=== PATIENT | female | born 1960 | race Caucasian/White ===

== ENCOUNTER 2017-08-14 16:21 | Emergency (ER) | payer MEDICARE, MEDICAID ==
--- NOTE | 2017-08-14 16:54 | Emergency Department Record ---
History of Present Illness - General Chief Complaint: Cough Stated Complaint: COUGH Time Seen by Provider: 08/14/17 16:52 Source: Patient, Family Mode of Arrival: Ambulatory Limitations: No limitations - History of Present Illness Initial Comments: The patient is here due to a dry cough and low grade fever for one day. She also has a mild runny nose. The patient lives in a foster shelter and 2 other residents were just diagnosed with Influenza in the last 2 days. There is no reported vomiting, CP or SOB. MD Complaint: Cough, Fever Onset/Timin -: Days(s) - Related Data Previous Rx's Medication Instructions Recorded Oseltamivir Phosphate [Tamiflu] 75 mg PO BID #10 capsule 08/14/17 Allergies Allergy/AdvReac Type Severity Reaction Status Date / Time No Known Drug Allergies Allergy Verified 01/12/15 19:23 Travel Screening - Travel/Exposure Within Last 30 Days Have you traveled within the last 30 days?: No - Travel/Exposure Within Last Year Have you traveled outside the [place] in the last year?: No - Travel Symptoms Symptom Screening: None Review of Systems Constitutional: Reports: Fever. Denies: Chills, Malaise Eyes: Denies: Eye discharge ENT: Reports: Congestion Respiratory: Reports: Cough. Denies: Dyspnea Past Medical History - SOCIAL HISTORY Smoking Status: Never smoker Alcohol Use: None Drug Use: None - RESPIRATORY Hx Respiratory Disorders: No - CARDIOVASCULAR Hx Cardio Disorders: Yes Hx Hypertension: Yes (controlled) - NEURO Hx Neuro Disorders: Yes Hx Seizures: Yes (none in past 2 yrs) Comment:: encephalopathy, mental retardation - GI Hx GI Disorders: Yes Hx Reflux: Yes - Hx Genitourinary Disorders: No - ENDOCRINE Hx Endocrine Disorders: No - MUSCULOSKELETAL Hx Musculoskeletal Disorders: No - PSYCH Hx Psych Problems: Yes Comment:: needs occ redirecting - HEMATOLOGY/ONCOLOGY Hx Hematology/Oncology Disorders: No Family Medical History Any Significant Family History?: No Family Hx Comment (NOT TO BE USED IN PLACE OF ITEMS BELOW): unsure Physical Exam - General General Appearance: Alert, Cooperative, No acute distress - Head Head exam: Atraumatic, Normocephalic, Normal inspection - Eye Eye exam: Normal appearance, PERRL - ENT Throat exam: Normal inspection. negative: Tonsillar erythema, Tonsillar exudate - Neck Neck exam: Normal inspection, Full ROM. negative: Tenderness - Respiratory Respiratory exam: Normal lung sounds bilaterally. negative: Respiratory distress - Cardiovascular Cardiovascular Exam: Regular rate, Normal rhythm, Normal heart sounds - GI/Abdominal GI/Abdominal exam: Soft, Normal bowel sounds. negative: Tenderness Course Vital Signs 08/14/17 16:29 Temperature 99.8 F H Pulse Rate [ 87 Pulse Ox Probe] Respiratory 22 Rate Blood Pressure 128/81 [Left Arm] Pulse Ox 98 - Reevaluation(s) Reevaluation #1: I did discuss the neg xray with the home caregiver and the need to tx for Influenza due to the patient having classic symptoms and a clear cut exposure. 08/14/17 17:56 Medical Decision Making - Data Complexity MDM Data: X-Ray Ordered and/or Reviewed - Radiology Data Radiology results: Report reviewed (CXR: Neg) Disposition Disposition: Discharge Clinical Impression: Influenza Disposition: Home, Self-Care Condition: (2) Stable Instructions: Influenza (ED) Additional Instructions: Please use Motrin or Tylenol for body aches and fevers. Please give the Tamiflu as directed. Please see your PCP in 3-4 days if not better and return to the ER for any worsening symptoms. Prescriptions: Oseltamivir Phosphate [Tamiflu] 75 mg PO BID #10 capsule Forms: Patient Portal Access Time of Disposition: 16:59 Quality - Quality Measures Quality Measures: N/A - Blood Pressure Screening View Details: Yes Does Patient Have Any of the Following: No Blood Pressure Classification: Pre-Hypertensive BP Reading Systolic Measurement: 120 Diastolic Measurement: 78 Screening for High Blood Pressure: < Pre-Hypertensive BP, F/U Documented > [ G8950] Pre-Hypertensive Follow-up Interventions: Referral to alternative/primary care provider.
--- NOTE | 2017-08-15 23:01 | RADIOLOGY REPORT ---
EXAM: CHEST 2 VIEWS HISTORY: FEVER AND COUGH. TESTED POSITIVE FOR INFLUENZA A. TECHNIQUE: Upright PA and lateral views of the chest. COMPARISON: None. FINDINGS: The cardiomediastinal silhouette is normal in size and configuration. The pulmonary vasculature is nondilated. The lungs and pleural spaces are clear. There are mild degenerative changes scattered throughout the visualized spine. IMPRESSION: NO RADIOGRAPHIC EVIDENCE OF ACUTE CARDIOPULMONARY DISEASE. JOB NUMBER: [id number] MTDD
== END 2017-08-14 17:49 | disposition home or self-care (01) ==
LOC: ER 16:21
DX: J10.1 Influenza due to other identified influenza virus with other respiratory manifestations (principal); R05 Cough; I10 Essential (primary) hypertension
CPT/HCPCS: 71046; 99283

== ENCOUNTER 2017-12-09 19:57 | Emergency (ER) | payer MEDICARE, MEDICAID ==
--- NOTE | 2017-12-09 20:48 | Emergency Department Record ---
History of Present Illness - General Chief Complaint: Ankle/Foot Injury Stated Complaint: FALL/RT FOOT SWELLING AND PAIN Time Seen by Provider: 12/09/17 20:27 Source: [employer] Mode of Arrival: Wheelchair Limitations: Altered mental status - History of Present Illness Initial Comments: pt comes from an [facility]. she was chasing a bee today and fell and injured both ankles and her l arm. no head injury. ot is a poor historian. info given by healthcare social worker Complaint: Ankle injury, Fall, Other Onset/Timin -: Hour(s) Injury: Ankle: Right, Left Place: Other Severity: Mild Worsens With: Weight bearing Context: Fall Associated Symptoms: Swelling, Unable to bear weight Treatments Prior to Arrival: Cold therapy - Related Data Home Medications Medication Instructions Recorded Confirmed Last Taken Benzonatate [Tessalon] 1 cap PO Q8H PRN 12/09/17 12/09/17 Unknown Lamotrigine [Lamictal] 200 mg PO DAILY 12/09/17 12/09/17 Unknown Allergies Allergy/AdvReac Type Severity Reaction Status Date / Time No Known Drug Allergies Allergy Verified 01/12/15 19:23 Travel Screening - Travel/Exposure Within Last 30 Days Have you traveled within the last 30 days?: No - Travel Symptoms Symptom Screening: None Review of Systems ROS unobtainable: Due to mental status Reviewed: No additional complaints except as noted below Constitutional: Reports: As per HPI. Denies: Chills, Fever, Malaise, Night sweats, Weakness, Weight change Eyes: Reports: As per HPI. Denies: Eye discharge, Eye pain, Photophobia, Vision change ENT: Reports: As per HPI. Denies: Congestion, Dental pain, Ear pain, Epistaxis , Hearing loss, Throat pain Respiratory: Reports: As per HPI. Denies: Cough, Dyspnea, Hemoptysis, Stridor, Wheezes Cardiovascular: Reports: As per HPI. Denies: Arrhythmia, Chest pain, Dyspnea on exertion, Edema, Murmurs, Orthopnea, Palpitations, Paroxysmal nocturnal dyspnea, Rheumatic Fever, Syncope Endocrine: Reports: As per HPI. Denies: Fatigue, Heat or cold intolerance, Polydipsia, Polyuria Gastrointestinal: Reports: As per HPI. Denies: Abdominal pain, Constipation, Diarrhea, Hematemesis, Hematochezia, Melena, Nausea, Vomiting Genitourinary: Reports: As per HPI. Denies: Abnormal menses, Discharge, Dyspareunia, Dysuria, Frequency, Hematuria, Incontinence, Retention, Urgency Musculoskeletal: Reports: As per HPI. Denies: Arthralgia, Back pain, Gout, Joint swelling, Myalgia, Neck pain Skin: Reports: As per HPI. Denies: Bruising, Change in color, Change in hair/ nails, Lesions, Pruritus, Rash Neurological: Reports: As per HPI. Denies: Abnormal gait, Confusion, Headache, Numbness, Paresthesias, Seizure, Tingling, Tremors, Vertigo, Weakness Psychiatric: Reports: As per HPI. Denies: Anxiety, Auditory hallucinations, Depression, Homicidal thoughts, Suicidal thoughts, Visual hallucinations Hematological/Lymphatic: Reports: As per HPI. Denies: Anemia, Blood Clots, Easy bleeding, Easy bruising, Swollen glands Past Medical History - SOCIAL HISTORY Smoking Status: Never smoker - RESPIRATORY Hx Respiratory Disorders: No Comment:: seasonal allergies - CARDIOVASCULAR Hx Cardio Disorders: Yes Hx Hypertension: Yes (controlled) Comment:: high cholesterol - NEURO Hx Neuro Disorders: Yes Hx Seizures: Yes (none in past 2 yrs) Comment:: encephalopathy, mental retardation - GI Hx GI Disorders: Yes Hx Reflux: Yes - Hx Genitourinary Disorders: No - ENDOCRINE Hx Endocrine Disorders: No - MUSCULOSKELETAL Hx Musculoskeletal Disorders: No - PSYCH Hx Psych Problems: Yes Comment:: needs occ redirecting - HEMATOLOGY/ONCOLOGY Hx Hematology/Oncology Disorders: No Family Medical History Any Significant Family History?: No Family Hx Comment (NOT TO BE USED IN PLACE OF ITEMS BELOW): unsure Physical Exam - General General Appearance: Alert, Cooperative, No acute distress - Head Head exam: Normal inspection - Eye Eye exam: Normal appearance, PERRL, EOMI Pupils: Normal accommodation - ENT ENT exam: Normal exam, Mucous membranes moist, Normal external ear exam, Normal orophraynx Ear exam: Normal external inspection. negative: External canal tenderness Nasal Exam: Normal inspection. negative: Discharge, Sinus tenderness Mouth exam: Normal external inspection, Tongue normal Teeth exam: Normal inspection. negative: Dental caries Throat exam: Normal inspection. negative: Tonsillar erythema, Tonsillar exudate - Neck Neck exam: Normal inspection, Full ROM. negative: Tenderness - Respiratory Respiratory exam: Normal lung sounds bilaterally. negative: Respiratory distress - Cardiovascular Cardiovascular Exam: Regular rate, Normal rhythm, Normal heart sounds - GI/Abdominal GI/Abdominal exam: Soft, Normal bowel sounds. negative: Tenderness - Rectal Rectal exam: Deferred - exam: Deferred - Extremities Extremities exam: Full ROM, Normal capillary refill, Tenderness Image of Full Body: 1 - tenderness and bruising 2 - tenderness and ecchymosis 3 - ecchymosis - Back Back exam: Reports: Normal inspection, Full ROM. Denies: Muscle spasm, Rash noted, Tenderness - Neurological Neurological exam: Alert, Normal gait, Oriented X3, Reflexes normal - Psychiatric Psychiatric exam: Normal affect, Normal mood - Skin Skin exam: Dry, Intact, Normal color, Warm Course Vital Signs 12/09/17 20:04 Temperature 97.5 F L Pulse Rate [ 87 Pulse Ox Probe] Respiratory 16 Rate Blood Pressure 121/80 [Left Arm] Pulse Ox 97 Disposition Disposition: Discharge Clinical Impression: Ankle sprain Qualifiers: Encounter type: initial encounter Involved ligament of ankle: unspecified ligament Laterality: right Qualified Code(s): S93.401A - Sprain of unspecified ligament of right ankle, initial encounter Disposition: Home, Self-Care Condition: (1) Good Instructions: Ankle Sprain (ED) Additional Instructions: follow up with family doctor. return sooner if worse. ice and elevation Forms: Patient Portal Access Quality - Quality Measures Quality Measures: N/A - Blood Pressure Screening Does Patient Have Any of the Following: No Blood Pressure Classification: Pre-Hypertensive BP Reading Systolic Measurement: 121 Diastolic Measurement: 80 Screening for High Blood Pressure: < Pre-Hypertensive BP, F/U Documented > [ G8950] Pre-Hypertensive Follow-up Interventions: Follow-up with rescreen every year.
[2017-12-09] MEDS ORDERED: IBUPROFEN 600 MG TABLET PO ONE (21:18)
--- NOTE | 2017-12-11 10:21 | RADIOLOGY REPORT ---
EXAM: LEFT ANKLE HISTORY: PAIN. TECHNIQUE: Three views of the left ankle were obtained. Comparison: None. FINDINGS: Osteopenia. Post surgical changes of the medial malleolus. Negative for acute fracture or dislocation. Chronic changes to the ankle mortise. Small calcaneal spurs. IMPRESSION: NO ACUTE OSSEOUS ABNORMALITY. POST SURGICAL CHANGES AND DEGENERATIVE CHANGES. SMALL CALCANEAL SPURS. JOB NUMBER: [id number] MTDD
--- NOTE | 2017-12-11 10:32 | RADIOLOGY REPORT ---
EXAM: RIGHT ANKLE HISTORY: PAIN. TECHNIQUE: Three views of the right ankle were obtained. Comparison: None. Encounter: Initial. FINDINGS: Osteopenia. Post surgical change of the medial malleolus. Negative for acute fracture or dislocation. Small plantar heel spur. Mild lateral soft tissue swelling. IMPRESSION: OSTEOPENIA. MILD LATERAL SOFT TISSUE SWELLING. POST SURGICAL CHANGES. TINY CALCANEAL SPUR. JOB NUMBER: [id number] MTDD
--- NOTE | 2017-12-11 10:34 | RADIOLOGY REPORT ---
EXAM: LEFT HUMERUS HISTORY: PAIN. TECHNIQUE: Two views of the left humerus were obtained. Comparison: None. Encounter: Initial. FINDINGS: Negative for fracture or dislocation. The soft tissues are unremarkable. The joint spaces are preserved. IMPRESSION: NEGATIVE LEFT HUMERUS EXAMINATION. JOB NUMBER: [id number] MTDD
== END 2017-12-09 21:41 | disposition home or self-care (01) ==
LOC: ER 19:57
DX: S93.401A Sprain of unspecified ligament of right ankle, initial encounter (principal); M25.572 Pain in left ankle and joints of left foot; M79.622 Pain in left upper arm; I10 Essential (primary) hypertension; W19.XXXA Unspecified fall, initial encounter
CPT/HCPCS: 99283; 99284

== ENCOUNTER 2019-09-27 09:09 | Emergency (ER) | payer MEDICARE, MEDICAID ==
--- NOTE | 2019-09-27 09:47 | Emergency Department Record ---
History of Present Illness - General Chief Complaint: Ankle/Foot Injury Stated Complaint: ANKLE INJURY Time Seen by Provider: 09/27/19 09:29 Source: Patient Mode of Arrival: Ambulatory Limitations: No limitations - History of Present Illness Initial Comments: The patient is here due to L ankle pain for a week. She initially injured it by falling a week ago and has been walking on it. She did go out yesterday with her mother and did injure it again. Now today she woke up and has been unable to walk on the leg and the ankle and foot are very swollen. MD Complaint: Ankle injury Onset/Timin -: Days(s) Place: Home Severity: Moderate Severity scale (1-10): 4 Improves With: Rest Worsens With: Weight bearing - Related Data Allergies Allergy/AdvReac Type Severity Reaction Status Date / Time No Known Drug Allergies Allergy Verified 09/27/19 09:34 Travel/Exposure Screening - Travel/Exposure Within Last 30 Days Have you traveled within the last 30 days?: No - Travel/Exposure Within Last Year Have you traveled outside the [place] in the last year?: No - Additonal Travel/Exposure Details Have you been exposed to anyone with a communicable illness?: No - Travel Symptoms Symptom Screening: None Review of Systems Constitutional: Denies: Chills, Fever Eyes: Denies: Eye discharge ENT: Denies: Congestion Respiratory: Denies: Cough Past Medical History - SOCIAL HISTORY Smoking Status: Never smoker Alcohol Use: None Drug Use: None - RESPIRATORY Hx Respiratory Disorders: Yes Comment:: seasonal allergies - CARDIOVASCULAR Hx Cardio Disorders: Yes Hx Hypertension: Yes (controlled) Comment:: high cholesterol - NEURO Hx Neuro Disorders: Yes Hx Seizures: Yes (none in past 6 yrs) Comment:: encephalopathy, mental retardation - GI Hx GI Disorders: Yes Hx Reflux: Yes - Hx Genitourinary Disorders: No - ENDOCRINE Hx Endocrine Disorders: No - MUSCULOSKELETAL Hx Musculoskeletal Disorders: No - PSYCH Hx Psych Problems: Yes Hx Anxiety: Yes Comment:: needs occ redirecting - HEMATOLOGY/ONCOLOGY Hx Hematology/Oncology Disorders: No Family Medical History Any Significant Family History?: Yes Family Hx Comment (NOT TO BE USED IN PLACE OF ITEMS BELOW): unsure Physical Exam - General General Appearance: Alert, Cooperative, No acute distress - Head Head exam: Atraumatic - Eye Eye exam: Normal appearance - Neck Neck exam: Normal inspection, Full ROM. negative: Tenderness - Respiratory Respiratory exam: Normal lung sounds bilaterally. negative: Respiratory distress - Cardiovascular Cardiovascular Exam: Regular rate, Normal rhythm, Normal heart sounds - Extremities Extremities exam: Normal capillary refill, Tenderness (There is diffuse L ankle tenderness mainly laterally. ), Other (The L knee is mildly tender also.). negative: Normal inspection (The L ankle and foot are mildly edematous and bruised.), Calf tenderness, Full ROM, Joint swelling, Pedal edema - Neurological Neurological exam: Alert. negative: Motor sensory deficit Course Vital Signs 09/27/19 09:28 Temperature 97.8 F Pulse Rate 83 Respiratory 18 Rate Blood Pressure 120/82 Pulse Ox 98 - Reevaluation(s) Reevaluation #1: I did discuss the xray results with the patient's caregiver. I also did discuss the case with Dr. Gaona and he will be willing to see the patient in the specialty clinic. She is to wear a fracture boot and weight bear as tolerated. 09/27/19 10:48 Medical Decision Making - Data Complexity MDM Data: X-Ray Ordered and/or Reviewed - Radiology Data Radiology results: Report reviewed (L knee: Neg L ankle: post op changes with a subtle possible nondisplaced distal fibula fx.) Disposition Disposition: Discharge Clinical Impression: Ankle fracture, left Qualifiers: Encounter type: initial encounter Fracture type: closed Qualified Code(s): S82.892A - Other fracture of left lower leg, initial encounter for closed fracture Disposition: Home, Self-Care Condition: (2) Stable Instructions: Ankle Fracture (ED) Additional Instructions: Please give Tylenol for pain and ice and elevate the L ankle when possible. Please wear the walking boot at all times and she may weight bear as tolerated. Please see Dr. Gaona in the Specialty Clinic as directed. Referrals: [facility] Specialty Clinics [Provider Group] Forms: Patient Portal Access Time of Disposition: 10:52 Quality - Quality Measures Quality Measures: N/A - Blood Pressure Screening View Details: Yes Does Patient Have Any of the Following: No Blood Pressure Classification: Pre-Hypertensive BP Reading Systolic Measurement: 120 Diastolic Measurement: 82 Screening for High Blood Pressure: < Pre-Hypertensive BP, F/U Documented > [G8950] Pre-Hypertensive Follow-up Interventions: Referral to alternative/primary care provider.
--- NOTE | 2019-09-27 11:05 | RADIOLOGY REPORT ---
EXAMINATION: Left Ankle, Complete Minimum Three Views EXAM DATE: 09/27/2019 10:29 AM TECHNIQUE: AP, lateral, and oblique INDICATION: trauma COMPARISON: 12/09/2017 report only ENCOUNTER: Initial FINDINGS: Diffuse soft tissue swelling. Osteopenia. Orthopedic screws medial malleolus. Old fracture deformity lateral malleolus. Narrowing of the tibiotalar and fibulotalar joints with mild spurring. Plantar jorden caneal spurring. IMPRESSION: No acute abnormality, diffuse soft tissue swelling. Follow-up MRI if symptoms persist Dictated by: Kobi Muniz MD on 09/27/2019 10:59 AM. .
--- NOTE | 2019-09-27 11:05 | RADIOLOGY REPORT ---
EXAMINATION: Left Knee, Three Views EXAM DATE: 09/27/2019 10:29 AM TECHNIQUE: Frontal, lateral, and oblique INDICATION: trauma COMPARISON: None ENCOUNTER: Initial FINDINGS: Osteopenia. Tricompartment narrowing. No acute fracture or dislocation. Small suprapatellar effusion. IMPRESSION: No acute abnormality, small suprapatellar effusion. Follow-up MRI if symptoms persist Dictated by: Kobi Muniz MD on 09/27/2019 11:03 AM. .
== END 2019-09-27 11:21 | disposition home or self-care (01) ==
LOC: ER 09:09
DX: S82.832A Other fracture of upper and lower end of left fibula, initial encounter for closed fracture (principal); W19.XXXA Unspecified fall, initial encounter; M25.562 Pain in left knee; Y92.009 Unspecified place in unspecified non-institutional (private) residence as the place of occurrence of the external cause
CPT/HCPCS: 99284